=== PATIENT | male | born 1955 | race African-American/Black ===

== ENCOUNTER 2018-04-30 10:38 | Outpatient (CLI) | payer OTHER ==
--- NOTE | 2018-04-30 12:47 | RAD ---
RIGHT KNEE FOUR VIEWS: History: Right knee pain. FINDINGS: Joint spaces are preserved. Very mild osteophytosis. No acute fracture or dislocation. No fluid diste ntion of the joint capsule is reliably demonstrated. Tibial naheed partially visualized without evidence of complication. IMPRESSION: Mild osteoarthritic changes right knee. Post-operative changes right kidney. No acute osseous abnorma lity demonstrated. POS: [facility]
== END 2018-04-30 10:39 | disposition home or self-care (01) ==
LOC: MADRAD 10:38
PROVIDERS: ATTEND Orthopaedic Surgery
DX: M13.80 Other specified arthritis, unspecified site (principal); M17.11 Unilateral primary osteoarthritis, right knee; Z98.890 Other specified postprocedural states